=== PATIENT | female | born 1965 | race American Indian/Alaskan Native ===

== ENCOUNTER 2019-11-28 11:38 | Emergency (ER) | payer SELFPAY ==
[2019-11-28 12:23] VITALS: BP 149/82
[2019-11-28 14:06] LABS: Bilirubin,Urine NEG (Negative); Blood,Urine NEG (Negative); Color,Urine Yellow (Yellow); Mucus,Urine 1+ /HPF; Protein,Urine <15 mg/dL mg/dL (Negative); RBC,Urine < 1.0 /HPF (0.0-6.0); Urobilinogen,Urine < 2.0 mg/dL (<2.0)
[2019-11-28] MEDS ORDERED: IBUPROFEN 600 MG TAB PO ONE (14:25)
[2019-11-28] MEDS ORDERED: dexAMETHasone 20 MG/5 ML VIAL IM ONE (14:25)
--- NOTE | 2019-11-28 14:36 | Emergency Department Report ---
ED Back Pain/Injury HPI - General Chief Complaint: Abdominal Pain Stated Complaint: (L) SIDE PAIN Time Seen by Provider: 11/28/19 14:18 Source: patient Limitations: No Limitations - History of Present Illness Initial Comments: Patient is a 54-year-old female presents emergency room with complaints of left lower back pain that began 3 weeks ago. She states that she was reaching down under the seat to get something out of her car and felt a pulling sensation in her lower back. She states that she went to another emergency department on 11/14 and had an x-ray at that time which she states was normal. She states over the last couple of days she has had increasing discomfort, pain with walking, pain with turning. She states that the pain radiates down her left leg. She d enies any numbness, saddle numbness, weakness, bowel or bladder incontinence, dysuria, fever, vomiting, any other symptoms. She denies any allergies to medications. - Related Data Previous Rx's Medication Instructions Recorded Last Taken Type Naproxen [EC-Naprosyn] 500 mg PO BID PRN #14 tablet. 11/28/19 Unknown Rx methOCARBAMOL [Robaxin TAB] 500 mg PO BID PRN #12 tab 11/28/19 Unknown Rx Allergies Allergy/AdvReac Type Severity Reaction Status Date / Time No Known Allergies Allergy Unverified 11/28/19 12:21 ED Review of Systems ROS: Stated complaint: (L) SIDE PAIN Other details as noted in HPI Comment: All other systems reviewed and negative ED Past Medical Hx - Past Medical History Previous Medical History?: No - Social History Smoking Status: Never Smoker Substance Use Type: None - Medications Home Medications: Home Medications Medication Instructions Recorded Confirmed Last Taken Type Naproxen [EC-Naprosyn] 500 mg PO BID PRN #14 tablet. 11/28/19 Unknown Rx methOCARBAMOL [Robaxin TAB] 500 mg PO BID PRN #12 tab 11/28/19 Unknown Rx ED Physical Exam - General Limitations: No Limitations General appearance: alert, in no apparent distress - Head Head exam: Present: atraumatic, normocephalic - Eye Eye exam: Present: normal appearance - ENT ENT exam: Present: mucous membranes moist - Respiratory Respiratory exam: Present: normal lung sounds bilaterally. Absent: respiratory distress, wheezes, rales, rhonchi, stridor, chest wall tenderness, accessory muscle use, decreased breath sounds, prolonged expiratory - Cardiovascular Cardiovascular Exam: Present: regular rate, normal rhythm, normal heart sounds. Absent: systolic murmur, diastolic murmur, rubs, gallop - GI/Abdominal GI/Abdominal exam: Present: soft, normal bowel sounds. Absent: distended, tenderness, guarding, rebound, rigid - Back Exam Back exam: Present: normal inspection, full ROM, paraspinal tenderness (left sided l-spine lumbar muscular ttp, no midline c-spine, t-spine, or l-spine, no step offs, no deformities). Absent: CVA tenderness (R), CVA tenderness (L), vertebral tenderness - Neurological Exam Neurological exam: Present: alert, oriented X3, CN II-XII intact, normal gait. Absent: motor sensory deficit - Psychiatric Psychiatric exam: Present: normal affect, normal mood - Skin Skin exam: Present: warm, dry, intact ED Course Vital Signs 11/28/19 12:20 Temperature 98.5 F Pulse Rate 75 Respiratory 20 Rate Blood Pressure 149/82 O2 Sat by Pulse 100 Oximetry ED Medical Decision Making - Medical Decision Making Patient is a 54-year-old female presents emergency room with complaints of left lower back pain that began 3 weeks ago. She states that she was reaching down under the seat to get something out of her car and felt a pulling sensation in her lower back. She states that she went to another emergency department on 11/14 and had an x-ray at that time which she states was normal. She states over the last couple of days she has had increasing discomfort, pain with walking, pain with turning. She states that the pain radiates down her left leg. She denies any numbness, saddle numbness, weakness, bowel or bladder incontinence, dysuria, fever, vomiting, any other symptoms. She denies any allergies to medications. Vitals are stable. On exam:left sided l-spine lumbar muscular ttp, no midline c-spine, t-spine, or l-spine, no step offs, no deformities, no focal neuro deficits. Patient does not have any red flag warning signs of back pain, patient has already had imaging performed. Examination could be consistent with muscle strain versus sciatica. Patient given dexamethasone and ibuprofen while in the emergency department and pain improved and she was able to ambulate to the bathroom without assistance. UA without evidence of UTI, dehydration, protein or glucose in the urine. Patient given prescription for Robaxin and na proxen. Advised patient Please take medication as prescribed. Do not drive or operate heavy machinery while taking muscle relaxer due to potential for drowsiness. May use ice pack, heating pad, rest, Epson salt bath. Follow-up with orthopedic doctor for reexamination. Return to emergency room for any new or worsening symptoms. - Differential Diagnosis Strain, sprain, fx, dislocation, bulging disc, disc herniation, sciatica Critical care attestation.: If time is entered above; I have spent that time in minutes in the direct care of this critically ill patient, excluding procedure time. ED Disposition Clinical Impression: Lumbar strain Qualifiers: Encounter type: initial encounter Qualified Code(s): S39.012A - Strain of muscle, fascia and tendon of lower back, initial encounter Sciatica Qualifiers: Laterality: left Qualified Code(s): M54.32 - Sciatica, left side Disposition: DC- TO HOME OR SELFCARE Is pt being admited?: No Does the pt Need Aspirin: No Condition: Stable Instructions: Muscle Strain (ED), Sciatica (ED) Additional Instructions: Please take medication as prescribed. Do not drive or operate heavy machinery while taking muscle relaxer due to potential for drowsiness. May use ice pack, heating pad, rest, Epson salt bath. Follow-up with orthopedic doctor for reexamination. Return to emergency room for any new or worsening symptoms. Prescriptions: Naproxen [EC-Naprosyn] 500 mg PO BID PRN #14 tablet.dr PRN Reason: pain methOCARBAMOL [Robaxin TAB] 500 mg PO BID PRN #12 tab PRN Reason: Muscle Spasm Referrals: MARGARITA LUCAS MD [Staff Physician] - 3-5 Days [facility] [Provider Group] - 3-5 Days Time of Disposition: 14:39 Print Language: NIGERIAN
== END 2019-11-28 14:46 | disposition home or self-care (01) ==
LOC: ED 11:38
DX: S39.012A Strain of muscle, fascia and tendon of lower back, initial encounter (principal); M54.32 Sciatica, left side; X58.XXXA Exposure to other specified factors, initial encounter; Y93.89 Activity, other specified; Y92.89 Other specified places as the place of occurrence of the external cause; Y99.8 Other external cause status
CPT/HCPCS: 81001; 96372; 99283; J1100